=== PATIENT | male | born 2000 | race Two or more races ===

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

== ENCOUNTER 2022-01-30 09:36 | Emergency (ER) | payer OTHER ==
[~2022-01-30] VITALS: Ht 182.9 cm; Wt 102.1 kg
== END 2022-01-30 12:50 | disposition home or self-care (01) ==
LOC: EMR PED 09:36
DX: B37.49 Other urogenital candidiasis (principal)

== ENCOUNTER 2024-06-30 05:01 | Emergency (ER) | payer OTHER ==
[~2024-06-30] VITALS: Ht 180.3 cm; Wt 117.9 kg
[2024-06-30] MEDS ORDERED: ACETAMINOPHEN 500 MG GEL..CAP PO STA (07:04)
[2024-06-30] MEDS ORDERED: GUAIFENESIN 200 MG/10 ML BLIST.PACK PO STA (07:04)
[2024-06-30] MEDS ORDERED: GUAIFENESIN 200 MG/10 ML BLIST.PACK PO ONE (07:23)
[2024-06-30] MEDS ORDERED: ACETAMINOPHEN 500 MG GEL..CAP PO ONE (07:23)
[2024-06-30 07:50] LABS: HEMATOCRIT 50.4 % (39.0-48.0); HEMOGLOBIN 17.2 g/dL (13-16.00); MEAN CELL VOLUME 89.5 fL (80.0-100.00); MEAN CORPUSCULAR HEMOGLOBIN 30.6 pg (27.00-32.0); MEAN CORPUSCULAR HGB CONC 34.2 g/dl (32.0-36.0); PLATELET COUNT 272 K/uL (150-450); RED BLOOD COUNT 5.63 M/uL (4.00-6.00); RED CELL DISTRIBUTION WIDTH 14.8 % (11.5-14.5)
[2024-06-30] MEDS ORDERED: ZITHROMAX500 MG PO (10:24)
[2024-06-30] MEDS ORDERED: SINGULAIR10 MG PO (10:24)
[2024-06-30] MEDS ORDERED: PEPCID AC20 MG PO (10:24)
== END 2024-06-30 10:37 | disposition home or self-care (01) ==
LOC: ER 05:04
PROVIDERS: General Practice
DX: R53.81 Other malaise (principal); J02.9 Acute pharyngitis, unspecified; Z20.822 Contact with and (suspected) exposure to COVID-19